=== PATIENT | male | born 1950 | race Caucasian/White ===

== ENCOUNTER 2018-01-01 06:52 | Day surgery (SDC) | payer MEDICARE, OTHER ==
[2018-01-01] MEDS ORDERED: ONDANSETRON 4 MG/2 ML VIAL IV ONE (06:53)
[2018-01-01] MEDS ORDERED: IV LACTATED RINGERS SOLUTION 1,000 ML BAG IV ONE (06:53)
[2018-01-01] MEDS ORDERED: CEFAZOLIN 1 G VIAL MC ONE (06:53)
[2018-01-01] MEDS ORDERED: DEXAMETHASONE SOD PHOSPHATE 4 MG INJ IV ONE (06:53)
[2018-01-01] MEDS ORDERED: LABETALOL HCL 100 MG/20 ML VIAL MC ONE (06:53)
[2018-01-01] MEDS ORDERED: LIDOCAINE HCL 1% 20 ML VIAL MC ONE (06:53)
[2018-01-01] MEDS ORDERED: PROPOFOL 200 MG/20 ML BOTTLE IV ONE (06:53)
[2018-01-01] MEDS ORDERED: SEVOFLURANE 250 ML BOTTLE IH ONE (06:53)
[2018-01-01] MEDS ORDERED: diphenhydrAMINE 50 MG/1 ML VIAL MC ONE (06:53)
[2018-01-01] MEDS ORDERED: MORPHINE SULFATE PF 10 MG/10 ML AMPUL IV ONE (07:09)
[2018-01-01] MEDS ORDERED: BUPIVACAINE 0.25% 30 ML VIAL ONE (07:10)
[2018-01-01 07:37] LABS: BASOPHILS # (AUTO) 0.1 K/uL (0.0-8.0); BASOPHILS % (AUTO) 1.2 % (0.0-2.0); EOSINOPHILS # (AUTO) 0.2 K/uL (0.0-0.7); HEMATOCRIT 40.1 % (36.7-47.1); HEMOGLOBIN 14.1 g/dL (12.5-16.3); LYMPHOCYTES % (AUTO) 16.2 % (20.5-51.5); MEAN CORPUSCULAR HEMOGLOBIN 32.8 uug (23.8-33.4); MEAN CORPUSCULAR HGB CONC 35 g/dL (32.5-36.3); MEAN CORPUSCULAR VOLUME 93.4 fL (73.0-96.2); MONOCYTES # (AUTO) 0.7 K/uL (2.0-10.0); MONOCYTES % (AUTO) 10.2 % (0.0-11.0); NEUTROPHILS # (AUTO) 4.5 K/uL (1.8-8.9); NEUTROPHILS % (AUTO) 69.4 % (38.5-71.5); PLATELET COUNT (AUTO) 236 K/uL (152-348); WHITE BLOOD COUNT (AUTO) 6.4 K/uL (3.6-10.2)
[2018-01-01 07:43] LABS: CREATININE 0.8 mg/dL (0.6-1.3); POTASSIUM 3.7 mmol/L (3.5-5.1)
[2018-01-01 07:49] LABS: BILIRUBIN,TOTAL 0.7 mg/dL (0.2-1.0); TOTAL PROTEIN, SERUM 7.7 g/dL (6.4-8.2)
[2018-01-01] MEDS ORDERED: MIDAZOLAM HCL 2 MG/2 ML VIAL ONE (08:03)
[2018-01-01] MEDS ORDERED: HYDROMORPHONE 2 MG/1 ML DISP.SYRIN ONE (08:03)
[2018-01-01] MEDS ORDERED: ONDANSETRON 4 MG/2 ML VIAL ONE (10:09)
[2018-01-01] MEDS ORDERED: KETOROLAC TROMETHAMINE 30 MG INJ ONE (10:42)
== END 2018-01-01 12:00 | disposition home or self-care (01) ==
LOC: DS 06:52
PROVIDERS: ATTEND Orthopaedic Surgery
DX: M23.221 Derangement of posterior horn of medial meniscus due to old tear or injury, right knee (principal); E11.9 Type 2 diabetes mellitus without complications; I10 Essential (primary) hypertension; E55.9 Vitamin D deficiency, unspecified; I25.10 Atherosclerotic heart disease of native coronary artery without angina pectoris; I48.91 Unspecified atrial fibrillation; M19.90 Unspecified osteoarthritis, unspecified site; Z87.891 Personal history of nicotine dependence; Z79.899 Other long term (current) drug therapy; Z82.49 Family history of ischemic heart disease and other diseases of the circulatory system
CPT/HCPCS: 36415; 85025; 85610; A4663; J0690; J1100; J1170; J1200; J1885; J2250; J2274; J2405; J3490; J7120